=== PATIENT | male | born 1960 | race Caucasian/White ===

== ENCOUNTER 2016-06-20 15:49 | Emergency (ER) | payer OTHER ==
[~2016-06-20] VITALS: Ht 172.7 cm; Wt 93.0 kg
[~2016-06-20 15:49] MED LIST: ADVAI250I PO; ALBU1AER INH; ATOR20TA PO; AZIT250T43 PO; BENZ100 PO; CEFU1TAB43 PO; CIPR500T2 PO; DUONSOL2 NEB; GUAI600 PO; LEVO125T3 PO; METF500 PO; METH10TA PO; MSIR15 PO; PRED10 PO; SERT100 PO; TOBR28CA
[2016-06-20 16:06] VITALS: BP 160/90; PULSE 82; RESP 18; TEMP 98.5; O2SAT 98
[2016-06-20] MEDS ORDERED: VENTAER INH (18:24)
[2016-06-20] MEDS ORDERED: ATOR20TA15 PO (18:24)
[2016-06-20] MEDS ORDERED: METH10TA PO (18:24)
[2016-06-20] MEDS ORDERED: ZOLO100T PO (18:24)
[2016-06-20] MEDS ORDERED: METF500T PO (18:24)
[2016-06-20] MEDS ORDERED: MORP1TAB24 PO (18:24)
[2016-06-20] MEDS ORDERED: ADVA250A INH (18:24)
[2016-06-20] MEDS ORDERED: LEVO125T4 PO (18:24)
--- NOTE | 2016-06-20 18:27 | PD ---
HPI . Abnormal outpatient EKG Chief Complaint: Abnormal Results Time Seen by Provider: 18:14 Travel History International Travel<30 days: No Contact w/Intl Traveler<30days: No Traveled to known affect area: No History of Present Illness HPI Patient presents stating that his pain management doctor in [facility] had to come to the emergency department for an EKG. He states that he had one done in the office that showed a prolonged QT interval. He was instructed to come here for another one. PFSH Past Medical History Asthma: Yes Anxiety: Yes Depression: Yes Cancer: No Cardiovascular Problems: Yes High Cholesterol: Yes COPD: Yes (KARTAGENER SYNDROME) Diabetes: Yes Patient Takes Glucophage: Yes Diminished Hearing: Yes Endocrine: Yes Genitourinary: No Immune Disorder: No Musculoskeletal: Yes (TAKES METHADONE) Neurologic: No Psychiatric: Yes Reproductive: No Respiratory: Yes Pneumonia: Yes Thyroid Disease: Yes Influenza Vaccination: No ?: Not Past Surgical History Arteriovenous Shunt: Yes Ear Surgery: Yes Thoracic Surgery: Yes (1989,"collapsed right lung,chest tube") Tympanostomy Tube: Yes (BILAT) Other Surgery: Yes ("sinus surgeries") Social History Alcohol Use: Yes Tobacco Use: No Substance Use: No Allergies-Medications (Allergen,Severity, Reaction): Coded Allergies: No Known Allergies (Verified , 06/20/16) Reported Meds & Prescriptions Reported Meds & Active Scripts Active Review of Systems Except as stated in HPI: all other systems reviewed are Neg General / Constitutional: No: Fever, Chills Cardiovascular: Positive: Chest Pain or Discomfort Respiratory: Positive: Cough, Shortness of Breath (related to chronic lung disease.) Physical Exam Narrative GENERAL: Hard of hearing. SKIN: Warm and dry. HEAD: Atraumatic. Normocephalic. EYES: Pupils equal and round. ENT: No nasal bleeding or discharge. Mucous membranes pink and moist. NECK: Trachea midline. CARDIOVASCULAR: Regular rate and rhythm. Heart sounds are normal. RESPIRATORY: No accessory muscle use. Lungs are clear with full air movement throughout. GASTROINTESTINAL: Abdomen soft, non-tender, nondistended. MUSCULOSKELETAL: No obvious deformities. No edema. NEUROLOGICAL: Awake and alert. No obvious cranial nerve deficits. Motor grossly within normal limits. Normal speech. PSYCHIATRIC: Appropriate mood and affect; insight and judgment normal. Data Data Last Documented VS Vital Signs Date Time Temp Pulse Resp B/P Pulse Ox O2 Delivery O2 Flow Rate FiO2 06/20/16 18:15 78 06/20/16 16:06 98.5 18 160/90 98 Orders Electrocardiogram (06/20/16 15:59) [facility] Medical Decision Making Medical Screen Exam Complete: Yes Emergency Medical Condition: Yes Interpretation(s) EKG shows a normal sinus rhythm with no acute ST segment elevation or depression. I do not appreciate QT prolongation. His EKG is unchanged from previous. He does have dextrocardia. Differential Diagnosis Differential diagnosis includes versus abnormal QT interval. Narrative Course Patient presents for an EKG. He does not have any cardiac symptoms. He has chronic lung disease. He is on pain management for pain associated with the chronic lung disease. Diagnosis Primary Impression: Fhueylqnwlnm-birkxfldvgeayz-juxupgabk syndrome Disposition: 01 DISCHARGE HOME Condition: Stable Brianna Omer MD Jun 20, 2016 18:27
--- NOTE | 2016-06-21 23:04 | EKG ---
Date Performed: 06/20/2016 Time Performed: 15:59:44 PTAGE: 55 years EKG: Sinus rhythm --- Suggests dextrocardia --- Abnormal ECG PREVIOUS TRACING : 01/16/2016 18.57 DOCTOR: Maria Eugenia Huizar Interpretating Date/Time 06/21/2016 22:58:48
== END 2016-06-20 18:36 | disposition home or self-care (01) ==
LOC: PHED 15:49 → PHEFT 18:36
DX: Q24.0 Dextrocardia (principal); J32.9 Chronic sinusitis, unspecified; J47.9 Bronchiectasis, uncomplicated; J45.909 Unspecified asthma, uncomplicated; E78.00 Pure hypercholesterolemia, unspecified; E11.9 Type 2 diabetes mellitus without complications; R94.31 Abnormal electrocardiogram [ECG] [EKG]
CPT/HCPCS: 93005

== ENCOUNTER → 2016-12-28 | Outpatient (CLI) | payer OTHER ==
[~2016-12-28] MED LIST changes: +ADVA250A INH; -ADVAI250I PO; -ALBU1AER INH; -ATOR20TA PO; +ATOR20TA15 PO; -AZIT250T43 PO; -BENZ100 PO; -CEFU1TAB43 PO; -CIPR500T2 PO; -DUONSOL2 NEB; -GUAI600 PO; -LEVO125T3 PO; +LEVO125T4 PO; -METF500 PO; +METF500T PO; +MORP1TAB24 PO; -MSIR15 PO; -PRED10 PO; -SERT100 PO; -TOBR28CA; +VENTAER INH; +ZOLO100T PO
[2016-12-28 13:10] LABS: BLOOD GAS BASE EXCESS 1.7 mmol/L (-2-2); BLOOD GAS CARBOXYHEMOGLOBIN 1.8 % (0-4); BLOOD GAS HCO3 26 mmol/L (22-26); BLOOD GAS METHEMOGLOBIN 1.1 % (0-2); BLOOD GAS O2 HGB SATURATION 90 % (90-100); BLOOD GAS OXYGEN CONTENT 16.3 Vol % (12.0-20.0); BLOOD GAS PCO2 45 mmHg (38-42); BLOOD GAS PO2 70 mmHg (61-120); BLOOD GAS TOTAL HGB 12.9 G/DL (12.0-16.0); TEMP CORR TO 98.6
[2016-12-28 13:11] LABS: CRITICAL VALUE NO; DRAW SITE RT RADIAL; FIO2 21 %; NUMBER OF ARTERIAL PUNCTURES 1; STAT NO; ULNAR PULSE PRESENT
--- NOTE | 2017-01-01 11:21 | RSPPFT ---
DATE OF PROCEDURE: 12/28/16 COMMENTS: VOLUMES DYNAMIC: FVC moderately reduced; FEV1 severely reduced. STATIC: TLC mildly reduced; RV moderately increased; FRC normal. FLOWS: FEV1% moderately reduced; FEF 25-75 severely reduced. DIFFUSION: Moderately reduced. FLOW VOLUME LOOP: Pattern of variable intrathoracic airways obstruction. IMPRESSION: Moderately severe obstructive ventilator defect with reduction in diffusion, increased airways resistance and a good response to bronchodilator.
== END ==
LOC: HRSP 12:23
PROVIDERS: ATTEND Internal Medicine
DX: J44.9 Chronic obstructive pulmonary disease, unspecified (principal)
CPT/HCPCS: 36600; 82805; 94060; 94620; 94726; 94729